=== PATIENT | female | born 1955 | race Caucasian/White ===

== ENCOUNTER 2020-07-01 06:57 | Inpatient (IN) | payer OTHER, BC ==
[2020-06-23 15:32] VITALS: BMI 26.7
[2020-07-01] MEDS ORDERED: CEFAZOLIN 2 GM in DEXTROSE 5%-WATER - 50 ML IVPB ONE (07:08)
[2020-07-01] MEDS ORDERED: CELECOXIB 200 MG CAPSULE PO ONE (07:08)
[2020-07-01] MEDS ORDERED: TRANEXAMIC ACID 1000 MG/10 ML VIAL IVPUSH ONE (07:08)
[2020-07-01] MEDS ORDERED: SODIUM CHLORIDE 0.9% P/F 10 ML VIAL IJ ONE (08:11)
[2020-07-01] MEDS ORDERED: BUPIVACAINE LIPOSOME/PF (EXPAREL) 266 MG/20 ML VIAL ONE (08:11)
[2020-07-01] MEDS ORDERED: MIDAZOLAM HCL 2 MG/2 ML SINGLE DOSE VIAL ONE ×2 (08:12→09:43)
[2020-07-01] MEDS ORDERED: VANCOMYCIN 1,000 MG VIAL (RESTRICTED TO ID ONLY) ONE (08:15)
[2020-07-01] MEDS ORDERED: ceFAZolin SODIUM 1 GM VIAL ONE ×2 (08:15→09:34)
[2020-07-01] MEDS ORDERED: SCOPOLAMINE HYDROBROMIDE 1 PATCH PATCH.TD72 ONE (08:48)
[2020-07-01] MEDS ORDERED: DEXAMETHASONE SOD PHOSPHATE 4 MG/1 ML VIAL ONE (09:33)
[2020-07-01] MEDS ORDERED: ONDANSETRON 4 MG/2 ML VIAL ONE (09:34)
[2020-07-01] MEDS ORDERED: SUCCINYLCHOLINE CHLORIDE 200 MG/10 ML SYRINGE ONE (09:35)
[2020-07-01] MEDS ORDERED: TRANEXAMIC ACID 1000 MG/10 ML VIAL ONE (09:35)
[2020-07-01] MEDS ORDERED: PROPOFOL 20 ML ONE ×3 (09:35)
[2020-07-01] MEDS ORDERED: VANCOMYCIN 1,000 MG VIAL (RESTRICTED TO ID ONLY) IVPB ONE (11:30)
[2020-07-01] MEDS ORDERED: MAG HYDROX/AL HYDROX/SIMETH 30 ML UNIT-DOSE CUP PO PRN (12:09)
[2020-07-01] MEDS ORDERED: MAGNESIUM HYDROX 2400MG/30ML ORAL SUSPENSION 30 ML CUP PO PRN (12:09)
[2020-07-01] MEDS ORDERED: ONDANSETRON 4 MG/2 ML VIAL IVPUSH PRN (12:09)
[2020-07-01] MEDS ORDERED: LACTATED RINGERS SOLUTION 1,000 ML IV SCH (12:15)
[2020-07-01] MEDS ORDERED: oxyCODONE HCL 5 MG TABLET PO PRN (12:46)
[2020-07-01] MEDS ORDERED: traMADol HCL 50 MG TABLET PO PRN (12:46)
[2020-07-01] MEDS: oxyCODONE HCL 5 MG TABLET PO PRN ×2 (15:13→20:13)
[2020-07-01] MEDS: ACETAMINOPHEN 325 MG TABLET (FP) PO SCH ×2 (15:13→20:13)
[2020-07-01] MEDS: CEFAZOLIN 2 GM/D5W 2 GM/50 ML ML IVPB SCH (18:42)
[2020-07-01] MEDS: SENNOSIDES/DOCUSATE COMBO (SENNA PLUS) TABLET (UD) PO SCH (22:24)
[2020-07-02] MEDS: oxyCODONE HCL 5 MG TABLET PO PRN ×2 (00:15→06:41)
[2020-07-02] MEDS: ACETAMINOPHEN 325 MG TABLET (FP) PO SCH ×4 (01:16→21:08)
[2020-07-02] MEDS: CEFAZOLIN 2 GM/D5W 2 GM/50 ML ML IVPB SCH (02:09)
[2020-07-02] MEDS: LEVOTHYROXINE NA 50 MCG TABLET (FP) PO SCH (06:53)
[2020-07-02 08:59] LABS: HEMATOCRIT 34.4 % (32.4-45.2); HEMOGLOBIN 10.7 GM/dl (10.7-15.3); MCH 23.6 pg (25.7-33.7); MCHC 31.2 g/dl (32.0-36.0); MEAN CELL VOLUME 75.4 fl (80-96); MEAN PLT VOLUME 8.1 fl (7.5-11.1); PLATELET COUNT 230 K/MM3 (134-434); RBC 4.56 M/mm3 (3.60-5.2); RDW 13.5 % (11.6-15.6); WHITE BLOOD COUNT 13.5 K/mm3 (4.0-10.8)
[2020-07-02] MEDS: ASPIRIN 325 MG TABLET PO SCH (09:00)
[2020-07-02] MEDS: CITALOPRAM HYDROBROMIDE 20 MG TABLET PO SCH (10:00)
[2020-07-02] MEDS: SENNOSIDES/DOCUSATE COMBO (SENNA PLUS) TABLET (UD) PO SCH ×2 (10:00→21:08)
[2020-07-02] MEDS: PANTOPRAZOLE 40 MG TABLET PO SCH (10:00)
[2020-07-02] MEDS: MULTIVITAMINS (DAILY MVI) TABLET (FP) PO SCH (10:00)
[2020-07-02] MEDS ORDERED: ROSUVASTATIN CA 5 MG TABLET (FP) PO SCH (22:00)
[2020-07-03] MEDS: ACETAMINOPHEN 325 MG TABLET (FP) PO SCH ×2 (04:14→08:21)
[2020-07-03] MEDS: LEVOTHYROXINE NA 50 MCG TABLET (FP) PO SCH (06:26)
[2020-07-03 08:17] LABS: HEMOGLOBIN 9.7 GM/dl (10.7-15.3); MCH 24.2 pg (25.7-33.7); MCHC 32.5 g/dl (32.0-36.0); MEAN CELL VOLUME 74.6 fl (80-96); MEAN PLT VOLUME 7.7 fl (7.5-11.1); PLATELET COUNT 195 K/MM3 (134-434); RBC 4.01 M/mm3 (3.60-5.2); RDW 13.5 % (11.6-15.6); WHITE BLOOD COUNT 10.9 K/mm3 (4.0-10.8)
[2020-07-03] MEDS: ASPIRIN 325 MG TABLET PO SCH (08:19)
[2020-07-03] MEDS: MULTIVITAMINS (DAILY MVI) TABLET (FP) PO SCH (09:27)
[2020-07-03] MEDS: SENNOSIDES/DOCUSATE COMBO (SENNA PLUS) TABLET (UD) PO SCH (09:28)
[2020-07-03] MEDS: PANTOPRAZOLE 40 MG TABLET PO SCH (09:28)
[2020-07-03] MEDS: CITALOPRAM HYDROBROMIDE 20 MG TABLET PO SCH (09:28)
[2020-07-03 12:39] VITALS: BP 137/51; PULSE 70; TEMP 98.7
== END 2020-07-03 12:20 | disposition home health service (06) | DRG 470 ==
LOC: FM/S 06:57
PROVIDERS: ADMIT Orthopaedic Surgery; ATTEND Orthopaedic Surgery
PROC: 8E0Y0CZ Robotic Assisted Procedure of Lower Extremity, Open Approach (ICD-10-PCS; 2020-07-01)
PROC: 0SRC0J9 Replacement of Right Knee Joint with Synthetic Substitute, Cemented, Open Approach (ICD-10-PCS; principal; 2020-07-01 10:41)
DX: M17.11 Unilateral primary osteoarthritis, right knee (principal); E78.5 Hyperlipidemia, unspecified; E03.9 Hypothyroidism, unspecified; F41.8 Other specified anxiety disorders
CPT/HCPCS: 36415; 73560-TC-RT-FY; 85027; 88305-TC; 88311-TC; 94760; 97010-GP; 97116-GP; 97163-GP